=== PATIENT | female | born 1970 | race Caucasian/White ===

== ENCOUNTER 2021-12-06 07:04 | Day surgery (SDC) | payer OTHER ==
[~2021-12-06] VITALS: Ht 160 cm; Wt 80.9 kg
[~2021-12-06 07:04] MED LIST: PERCOCET 325 MG1 TA2 PO
[2021-12-06] MEDS ORDERED: OMEGA-3 1000 MG1 CAP PO (07:28)
[2021-12-06 07:35] VITALS: BP 119/84; PULSE 87; TEMP 97.5
[2021-12-06 08:55] VITALS: BP 116/57; PULSE 84
--- NOTE | 2021-12-06 09:00 | NUR ---
Patient arrived back into [facility] from endo procedure room. patient is alert and awake. Vital signs stable. Report gotten from NICOLAS Eaton. Patient's at bedside with patient. Patient requesting toast, coffee, and water. Denies pain and nausea at this time. Patient resting in arm chair with call light in reach.
--- NOTE | 2021-12-06 09:15 | NUR ---
Patient alert and awake in room. Continues to do well, denies pain or nausea at this time. Vital signs stable. Call light within reach. at bedside.
--- NOTE | 2021-12-06 09:30 | NUR ---
Patient alert and awake. Vital signs stable. at bedside. IV removed with no complications. Patient tolerated food and drink well. Patient got dressed and ambulated to restroom independently. Waiting on Dr. Awad to see patient before discharge.
--- NOTE | 2021-12-06 09:45 | NUR ---
Dr. Awad in to see patient. Patient's questions answered. Went through discharge instructions with patient. No questions or concerns at this time. Patient and escorted to patient entrance via ambulation by NICOLAS Love.
== END 2021-12-06 09:47 | disposition home or self-care (01) ==
LOC: SDCO 07:04
DX: Z12.11 Encounter for screening for malignant neoplasm of colon (principal); K64.0 First degree hemorrhoids; K21.9 Gastro-esophageal reflux disease without esophagitis; G43.909 Migraine, unspecified, not intractable, without status migrainosus; Z79.899 Other long term (current) drug therapy; Z86.16 Personal history of COVID-19
CPT/HCPCS: J2704; J7030

== ENCOUNTER 2022-04-27 14:51 | Outpatient (RCR) | payer OTHER ==
[~2022-04-27 14:51] MED LIST changes: +OMEGA-3 1000 MG1 CAP PO
== END 2022-05-04 | disposition home or self-care (01) ==
LOC: WSOH
DX: S66.212A Strain of extensor muscle, fascia and tendon of left thumb at wrist and hand level, initial encounter (principal); Z90.89 Acquired absence of other organs; Y99.0 Civilian activity done for income or pay
CPT/HCPCS: 24091; A6549

== ENCOUNTER 2022-06-01 14:45 | Outpatient (RCR) | payer OTHER | END 2022-06-04 | disposition home or self-care (01) | LOC: WSOT | DX: S66.212D Strain of extensor muscle, fascia and tendon of left thumb at wrist and hand level, subsequent encounter (principal); Y99.0 Civilian activity done for income or pay; Z98.890 Other specified postprocedural states ==

== ENCOUNTER 2022-06-12 15:00 | Outpatient (RCR) | payer OTHER | END 2022-07-05 | disposition home or self-care (01) | LOC: WSOT | DX: S66.212D Strain of extensor muscle, fascia and tendon of left thumb at wrist and hand level, subsequent encounter (principal); X58.XXXD Exposure to other specified factors, subsequent encounter ==

== ENCOUNTER 2022-06-12 15:33 | Outpatient (RCR) | payer OTHER | END 2022-07-05 | disposition home or self-care (01) | LOC: WSOH | DX: S66.211D Strain of extensor muscle, fascia and tendon of right thumb at wrist and hand level, subsequent encounter (principal); Y99.0 Civilian activity done for income or pay; Z90.49 Acquired absence of other specified parts of digestive tract; Z98.890 Other specified postprocedural states ==